=== PATIENT | female | born 1955 | race Caucasian/White ===

== ENCOUNTER 2018-05-07 14:14 | Emergency (ER) | payer MEDICARE, MEDICAID ==
[2018-05-07 14:39] VITALS: BP 103/70
--- NOTE | 2018-05-07 14:55 | EDM.PDOC ---
ED HPI GENERAL MEDICAL PROBLEM - General Chief Complaint: Lower Extremity Injury/Pain Stated Complaint: LEFT LEG PAIN Time Seen by Provider: 05/07/18 14:17 Source of Information: Reports: Patient History Limitations: Reports: No Limitations - History of Present Illness INITIAL COMMENTS - FREE TEXT/NARRATIVE: left groin and lower leg pain; this is a 62year old female present to the ER from [facility] for evaluation for DVT. Mrs. Hyde reports her symptoms started about 3 days ago, left leg is painful and feels swollen. She has history of DVT in right leg. denies chest pain,shortness of breath,fever,chills or history of diabetes. Onset: Gradual Onset Date: 05/05/18 Duration: Day(s): (3) Location: Reports: Lower Extremity, Left, Other (left groin) Quality: Reports: Same as Previous Episode (hx of DVT in right leg 07/21/2016) Severity: Mild (rate pain 2/10) Improves with: Reports: Rest Worsens with: Reports: Movement (walking) Associated Symptoms: Reports: No Other Symptoms Left Leg Pain Score (Numeric/FACES): 2 - Related Data Allergies Allergy/AdvReac Type Severity Reaction Status Date / Time No Known Allergies Allergy Verified 05/07/18 14:27 Home Meds: Home Meds Levothyroxine [Sythroid] 100 mcg PO DAILY 04/10/13 [History] Furosemide 20 mg PO DAILY 05/07/18 [History] traMADol [Ultram] 50 mg PO TID 05/07/18 [History] Past Medical History HEENT History: Reports: Impaired Vision [employer] History: Reports: Musculoskeletal History: Reports: Back Pain, Chronic Endocrine/Metabolic History: Reports: Hypothyroidism Dermatologic History: Reports: None - Infectious Disease History Infectious Disease History: Reports: Chicken Pox - Past Surgical History Head Surgeries/Procedures: Reports: None HEENT Surgical History: Reports: Cataract Surgery, Tonsillectomy Endocrine Surgical History: Reports: None Musculoskeletal Surgical History: Reports: None Dermatological Surgical History: Reports: Skin Biopsy Social & Family History - Family History Family Medical History: Noncontributory - Tobacco Use Smoking Status *Q: Current Every Day Smoker Years of Tobacco use: 50 Packs/Tins Daily: 0 Used Tobacco, but Quit: No Second Hand Smoke Exposure: No - Caffeine Use Caffeine Use: Reports: Tea - Alcohol Use Number of Drinks Per Day: 7 - Recreational Drug Use Recreational Drug Use: No - Living Situation & Occupation Occupation: Disabled (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) Review of Systems - Review of Systems Review Of Systems: See Below Constitutional: Reports: No Symptoms Eyes: Reports: No Symptoms, Blindness (left eye prosthesis), Glasses Ears: Reports: No Symptoms Nose: Reports: No Symptoms Mouth/Throat: Reports: No Symptoms Respiratory: Reports: No Symptoms Cardiovascular: Reports: No Symptoms GI/Abdominal: Reports: No Symptoms Genitourinary: Reports: No Symptoms Musculoskeletal: Reports: Leg Pain (left), 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) Skin: Reports: Dryness (generalized dry flakey skin), Rash (groin rash), Erythema (groin rash left side), Wound (left cheek with steri strips due to recent cyst removal) Neurological: Reports: No Symptoms Psychiatric: Reports: No Symptoms ED EXAM, GENERAL - Physical Exam Exam: See Below Exam Limited By: No Limitations General Appearance: Alert, WD/WN, No Apparent Distress Eye Exam: Right Eye: Normal Inspection Ears: Normal External Exam Nose: Normal Inspection Throat/Mouth: Normal Inspection Head: Atraumatic, Normocephalic Neck: Normal Inspection, Supple, Non-Tender, Full Range of Motion Respiratory/Chest: No Respiratory Distress, Lungs Clear, Normal Breath Sounds, No Accessory Muscle Use Cardiovascular: Regular Rate, Rhythm, No JVD, No Murmur, Other (bilateral lower leg edema) Peripheral Pulses: 2+: Radial (L), Radial (R) GI/Abdominal: Normal Bowel Sounds, Soft, Non-Tender, No Distention (Female) Exam: No: Normal External Exam (left groin crease with erythema, weeping secondary to yeast rash) Back Exam: Normal Inspection, Full Range of Motion Extremities: Leg Pain (left leg pain with extension), Redness (left leg upper thigh with erytema.), Other (left calf very swollen, chronic per patient, lower legs with dry scales and flaking skin) Neurological: Alert, Oriented, Normal Cognition Psychiatric: Normal Affect, Normal Mood Skin Exam: Dry (generalized dry flakey skin. lower legs with scales and flaking. non tender to touch) Lymphatic: No Adenopathy Course - Vital Signs Last Recorded V/S: Last Vital Signs Temp 34.8 C L 05/07/18 14:31 Pulse 74 05/07/18 14:31 Resp 16 05/07/18 14:31 BP 103/70 05/07/18 14:31 Pulse Ox 99 05/07/18 14:31 - Orders/Labs/Meds Orders: Active Orders 24 hr Category Date Time Status VL Duplex Lwr Ext Veins Ltd Lt [US] Stat Exams 05/07/18 14:32 Ordered CBC WITH AUTO DIFF [HEME] Urgent Lab 05/07/18 15:18 Ordered COMPREHENSIVE METABOLIC PN,CMP [CHEM] Urgent Lab 05/07/18 15:18 Ordered INR,PT,PROTHROMBIN TIME [COAG] Urgent Lab 05/07/18 15:18 Ordered - Re-Assessments/Exams Free Text/Narrative Re-Assessment/Exam: 05/07/18 15:49 consulted with Hospitalist Internal Medicine -okay to discharge to home, start on Eliquis (apixaban) 5mg tablet, take 10mg po bid x 7 days then decrease dose to 5mg po bid -follow up with Primary Care Provider, has appointment on 05/11/18 -rest Departure - Departure Time of Disposition: 15:31 Disposition: Home, Self-Care 01 Condition: Good Clinical Impression: DVT (deep venous thrombosis), Yeast infection of the skin - Discharge Information *PRESCRIPTION DRUG MONITORING PROGRAM REVIEWED*: Not Applicable *COPY OF PRESCRIPTION DRUG MONITORING REPORT IN PATIENT RICKY: Not Applicable Instructions: Deep Vein Thrombosis, Venous Thromboembolism Prevention Referrals: PCP,None [Primary Care Provider] - Forms: ED Department Discharge Care Plan Goals: Deep Vein Thrombosis -start Eliquis today;take two tablet by mouth in morning and evening for 7 days then decrease to one tablet in morning and evening. -keep appointment with Primary Care Provider -discussed limiting activities, rest. -return to ER for any chest pain, shortness of breath, fever, chills, nausea, vomiting, prolonged bleeding or any concerns. Yeast rash -apply Clotrimazole 1% to rash two times a day for 14 days return to ER, Urgent Care or Clinic if not improved or symptoms worsen. - Problem List & Annotations (1) Yeast infection of the skin SNOMED Code(s): 79130615 Code(s): B37.2 - CANDIDIASIS OF SKIN AND NAIL Status: Acute Priority: Low Current Visit: Yes (2) DVT (deep venous thrombosis) SNOMED Code(s): 588115672 Code(s): I82.409 - ACUTE EMBOLISM AND THOMBOS UNSP DEEP VN UNSP LOWER EXTREMITY Status: Acute Priority: High Current Visit: Yes Qualifiers: DVT location: lower extremity Affected thrombotic vein of extremity: unspecified vein of extremity Chronicity: chronic Laterality: left Qualified Code(s): I82.502 - Chronic embolism and thrombosis of unspecified deep veins of left lower extremity - Problem List Review Problem List Initiated/Reviewed/Updated: Yes - My Orders Last 24 Hours: My Active Orders 05/07/18 14:32 VL Duplex Lwr Ext Veins Ltd Lt [US] Stat 05/07/18 15:18 CBC WITH AUTO DIFF [HEME] Urgent COMPREHENSIVE METABOLIC PN,CMP [CHEM] Urgent INR,PT,PROTHROMBIN TIME [COAG] Urgent - Assessment/Plan Last 24 Hours: My Active Orders 05/07/18 14:32 VL Duplex Lwr Ext Veins Ltd Lt [US] Stat 05/07/18 15:18 CBC WITH AUTO DIFF [HEME] Urgent COMPREHENSIVE METABOLIC PN,CMP [CHEM] Urgent INR,PT,PROTHROMBIN TIME [COAG] Urgent Plan: Deep Vein Thrombosis -start Eliquis today;take two tablet by mouth in morning and evening for 7 days then decrease to one tablet in morning and evening. -keep appointment with Primary Care Provider -return to ER for any chest pain, shortness of breath, fever, chills, nausea, vomiting, prolonged bleeding or any concerns. Yeast rash -apply Clotrimazole 1% to rash two times a day for 14 days return to ER, Urgent Care or Clinic if not improved or symptoms worsen.
== END 2018-05-07 16:05 | disposition home or self-care (01) ==
LOC: JP.ED 14:14
DX: I82.412 Acute embolism and thrombosis of left femoral vein (principal); I82.432 Acute embolism and thrombosis of left popliteal vein; B37.2 Candidiasis of skin and nail; E03.9 Hypothyroidism, unspecified; F17.210 Nicotine dependence, cigarettes, uncomplicated; Z79.899 Other long term (current) drug therapy
CPT/HCPCS: 36415; 80053; 85025; 85610; 93971-LT; 99283; 99284